=== PATIENT | female | born 1975 | race Two or more races ===

== ENCOUNTER 2024-03-03 19:03 | Emergency (ER) | payer MEDICAID, SELFPAY ==
[2024-03-03 20:10] VITALS: BP 129/86; PULSE 71; RESP 16; TEMP 36.8; O2SAT 97
--- NOTE | 2024-03-03 20:14 | XR_ITS ---
Examination: CT abdomen and pelvis without contrast. Coronal 3-D reconstructions. Sagittal 2-D reconstructions. Date and time of exam:March 03, 20242028 hrs. Comparison August 12, 2022 Indications: Right lower abdominal pain beginning 5 days ago CTDI: vol (mGy): 13 DLP: (mGycm): 778 Technique: Axial images of the abdomen have been obtained, 3 mm slice thickness Intravenous contrast material has not been administered. Low dose protocols were performed. One or more of the following dose reduction techniques were used; automated exposure control, adjustment of the mA and/or KV according to patient size, use of iterative reconstruction technique. Findings: No focal liver or splenic lesions Contracted gallbladder No pancreatic or adrenal mass No renal or ureteral calculi Aorta normal size Appendix is not visualized No pericecal inflammatory change No bowel obstruction or diverticulitis 27 mm hypodense right adnexal mass probably cyst Contracted urinary bladder Moderate disc narrowing L5-S1 Impression: No renal or ureteral calculi, no hydronephrosis No CT findings of appendicitis bowel obstruction or diverticulitis
--- NOTE | 2024-03-03 20:14 | PD.EDRME ---
Rapid Medical Screening Exam RME Arrival date/time: 03/03/24 19:03 48-year-old female past medical history of hysterectomy presents emergency department complaining of diffuse abdominal pain for 1 week. Chief Complaint: Abdominal Pain Time Seen by Provider: 03/03/24 20:11 Vital signs: Vital Signs Temperature 98.2 F 03/03/24 20:10 Pulse Rate 71 03/03/24 20:10 Respiratory Rate 16 03/03/24 20:10 Blood Pressure 129/86 H 03/03/24 20:10 Pulse Oximetry (%) 97 03/03/24 20:10 Oxygen Delivery Method Room Air 03/03/24 20:10 Vital signs reviewed by provider: Yes
[2024-03-03 20:19] VITALS: BMI 34.0
[2024-03-03] MEDS: KETOROLAC INJ 60 MG/2 ML VIAL 30 MG IM (20:27)
[2024-03-03 20:47] LABS: Collection Type, Urine Clean Catch
[2024-03-03 21:13] LABS: Bacteria,Urine Rare; Bilirubin,Urine Negative (Negative); Blood,Urine Negative (Negative); Clarity,Urine Clear (Clear/Hazy); Color,Urine Lt-Yellow (Lt Yel-Yel); Culture Indicated,Urine Not Indicated; Glucose, Urine Negative (Negative); Ketones,Urine Negative (Negative); Leukocyte Esterase,Urine Negative (Negative); Nitrite,Urine Negative (Negative); PH,Urine 6.5 (5.0-7.0); Protein,Urine Trace (Neg - Trace); RBC,Urine 2 /hpf (0-3); Squamous Epithelial Cell,Urine 4 /hpf (0-5); Urobilinogen,Urine Negative mg/dL (0.0-1.0); WBC,Urine 2 /hpf (0-5)
[2024-03-03 21:35] LABS: Basophils # (Auto) 0.1 Thou/mm3 (0.0-0.2); Basophils % (Auto) 1 % (0-2.5); Eosinophils # (Auto) 0.2 Thou/mm3 (0.0-0.5); Eosinophils % (Auto) 2 % (0-10); Hematocrit 39.5 % (36.0-46.0); Hemoglobin 13.4 g/dL (12.0-16.0); Immature Granulocytes % (Auto) 0 % (0-0); Immature Granulocytes Auto 0.04 Thou/mm3 (0.00-0.00); Lymphocytes # (Auto) 4.3 Thou/mm3 (1.0-4.8); Lymphocytes % (Auto) 39 % (10-50); Mean Corpuscular HGB Conc 33.9 g/dl (31.0-37.0); Mean Corpuscular Hemoglobin 30.6 pg (25.0-35.0); Mean Corpuscular Volume 90 fL (80-100); Monocytes # (Auto) 0.6 Thou/mm3 (0.0-0.8); Monocytes % (Auto) 6 % (0-12); Neutrophils # (Auto) 5.6 Thou/mm3 (1.8-7.7); Neutrophils % (Auto) 52 % (37-80); Nucleated Red Blood Cell % 0 /100 WBC (0); Platelet Count 235 Thou/mm3 (140-440); RDW Standard Deviation 41.6 fL (36.4-46.3); Red Blood Count 4.38 Miln/mm3 (4.00-5.20); White Blood Count 10.8 Thou/mm3 (3.6-11.0)
[2024-03-03 21:59] LABS: Alanine Aminotransferase 26 U/L (10-49); Albumin, Serum 4.3 gm/dL (3.5-5.0); Albumin/Globulin Ratio 1.5 (1.2-2.2); Alkaline Phosphatase 96 U/L (46-116); Anion Gap 6 (7-16); Aspartate Amino Transferase 25 U/L (0-34); BUN/Creatinine Ratio 20 Ratio (12-20); Bilirubin,Total 0.2 mg/dL (0.3-1.2); Blood Urea Nitrogen 16 mg/dL (9-23); Calcium 9.3 mg/dL (8.3-10.6); Calcium (Corrected) 9.3 mg/dL (8.5-10.1); Chloride 107 mMol/L (98-107); Creatinine (Component) 0.8 mg/dL (0.6-1.3); Estimated Creatinine Clearance 101.4 mL/min (>60); Globulin 2.8 gm/dL (2.3-3.5); Glucose 77 mg/dL (74-106); Lipase 35 U/L (12-53); Osmolality,Calculated 279 (275-295); Sodium 140 mMol/L (136-145); Total Protein 7.1 gm/dL (5.7-8.2); eGFR > 60 See Note
--- NOTE | 2024-03-03 23:37 | PD.EDABDPN ---
ED Abdominal Pain RME/HPI General Chief Complaint: Abdominal Pain Stated complaint: RIGHT SIDED ABD PAIN Time seen by provider: 03/03/24 20:11 Arrival date/time: 03/03/24 19:03 48-year-old female past medical history of hysterectomy presents emergency department complaining of diffuse abdominal pain for 1 week. Source: patient Mode of arrival: ambulatory Limitations: no limitations RME / HPI RME / HPI narrative: 03/03/24 19:03 48-year-old female past medical history of hysterectomy presents emergency department complaining of diffuse abdominal pain for 1 week. Related Data Previous Rx's ?Medication ?Instructions ?Recorded hydrocodone 5 mg-acetaminophen 325 1 tab PO BID PRN pain #14 tabs 10/30/19 mg tablet ([place]) ibuprofen 800 mg tablet 800 mg PO TID PRN pain #30 tabs 10/30/19 meclizine 25 mg tablet 25 mg PO TID PRN dizziness #20 tabs 11/01/22 ibuprofen 600 mg tablet 600 mg PO Q8H PRN pain #20 tabs 03/03/24 Allergies Allergy/AdvReac Type Severity Reaction Status Date / Time Penicillins Allergy Unknown Verified 11/01/22 11:32 Review of Systems Review of Systems Systems Reviewed: All systems reviewed, normal except as documented Constitutional Constitutional: Reports system reviewed and no additional complaints, except as documented, Denies body ache(s), Denies chills and Denies fever(s) Eyes Eyes: Reports system reviewed and no additional complaints, except as documented and Denies change in vision ENT Ears, Nose, Mouth, and Throat: Reports system reviewed and no additional complaints, except as documented, Denies disequilibrium, Denies dizziness, Denies sore throat and Denies vertigo Cardiovascular Cardiovascular: Reports system reviewed and no additional complaints, except as documented, Denies chest pain and Denies dyspnea Respiratory Respiratory: Reports system reviewed and no additional complaints, except as documented, Denies chest congestion, Denies cough and Denies dyspnea Gastrointestinal Gastrointestinal: Reports system reviewed and no additional complaints, except as documented, Reports abdominal pain, Denies nausea and Denies vomiting Musculoskeletal Musculoskeletal: Reports system reviewed and no additional complaints, except as documented, Denies abnormal gait and Denies arthralgias Integumentary/Breasts Skin/Breast: Reports system reviewed and no additional complaints, except as documented, Denies erythema, Denies rash and Denies wounds Neurologic Neurologic: Reports system reviewed and no additional complaints, except as documented, Denies abnormal gait, Denies disequilibrium, Denies dizziness and Denies vertigo Past Medical History Past Medical History CARDIAC: Negative Cardiac Disorders or Congestive Heart Failure RESPIRATORY: Negative Chronic Obstructive Pulmonary Disease (COPD) or Asthma GENITOURINARY: Negative Renal Disease ENDOCRINE: Negative Diabetes Mellitus Type 1 or Diabetes Mellitus Type 2 HEMATOLOGIC: Negative Sickle Cell Disease Family History FAMILY HISTORY: Positive Family Cardiac Disorders Surgical History SURGICAL: Positive Abdominal Surgery Social History SMOKING STATUS: Never smoker SUBSTANCE USE: does not use ED Exam General Limitations: Present no limitations General appearance: Present alert and in no apparent distress Head Head exam: Present atraumatic Eye Eye exam: Present normal appearance, PERRL and EOMI ENT ENT exam: Present normal exam, normal oropharynx and mucous membranes moist Neck Neck exam: Present normal inspection, full ROM and trachea midline Chest Chest inspection: Present normal inspection and symmetric chest wall rise Respiratory Respiratory exam: Present normal lung sounds bilaterally Cardiovascular Cardiovascular exam: Present regular rate, normal rhythm and normal heart sounds Abdominal Exam Abdominal exam: Present soft and normal bowel sounds Extremities Exam Extremities exam: Present normal inspection and full ROM Back Exam Back exam: Present normal inspection and full ROM Neurological Exam Neurological exam: Present alert, oriented X3 and CN II-XII intact Psychiatric Psychiatric exam: Present normal affect and normal mood Skin Skin exam: Present warm, dry, intact and normal color Course Quality Measures none Orders Category Date Time Status CT abdomen pelvis wo con Stat Exams 03/03/24 20:14 Completed CBC Stat Lab 03/03/24 20:39 Completed CMP [Comprehensive Metabolic Panel] Stat Lab 03/03/24 20:39 Completed Lipase Stat Lab 03/03/24 20:39 Completed Urinalysis, C/S if Indicated Stat Lab 03/03/24 20:29 Completed Ketorolac Inj [Toradol Inj] Med 03/03/24 20:14 Discontinued 30 mg IM X1 ONE Vital Signs Vital signs: Vital Signs Temperature 98.2 F 03/03/24 20:10 Pulse Rate 71 03/03/24 20:10 Respiratory Rate 16 03/03/24 20:10 Blood Pressure 129/86 H 03/03/24 20:10 Pulse Oximetry (%) 97 03/03/24 20:10 Oxygen Delivery Method Room Air 03/03/24 20:10 97% room air within normal limits Abdominal Pain MDM MDM Narrative MDM Narrative:: 48-year-old female past medical history of hysterectomy presents emergency department complaining of diffuse abdominal pain for 1 week. CBC unremarkable for any leukocytosis or anemia. CMP was unremarkable for any elevated LFTs or gross electrolyte abnormalities. Urinalysis was unremarkable. CT scan findings unremarkable other than 27 mm hypodense right adnexal mass probably cyst. Patient's abdomen is soft and nontender. Patient discharged ducted to follow-up with primary care provider and request pelvic ultrasound. Instructed to return to emergency department for any worsening symptoms or as needed. Patient data External records reviewed:: [facility] previous records Clinical information provided by:: patient Social determinants that could affect healthcare access:: none Patient has the following chronic illnesses:: See chart How is presenting disease/condition affected by chronic disease/condition?: uneffected by Evaluation data The following diagnostics were reviewed and interpreted by me:: lab results and radiology exam(s) Lab and/or radiology exams considered but not ordered:: Ordered Interpretation Summary: Interpreted by me Medications / Prescriptions Medications or Prescriptions considered but not ordered:: Ordered Medication administrations:: Medication Administration History Discontinued Medications Ketorolac Tromethamine (Ketorolac Inj 60 Mg/2 Ml Vial) 30 mg IM X1 ONE Stop: 03/03/24 20:15 Last Admin: 03/03/24 20:27 Dose: 30 mg Documented By: Given Consultations Consultation(s) initiated? (list below): No Diagnosis Differential diagnosis abdominal pain: abdominal pain, acute appendicitis, calculus of kidney, constipation, diverticulitis, endometriosis, gastroenteritis, pancreatitis and small bowel obstruction Most likely diagnosis given after review of the tests above:: Adnexal mass Admission Indicated Admission indicated?: not indicated Admission Request Was there a request for admission?: No Disposition Plan Disposition Plan: Discharge Discharge Attestation Discharge Attestation: The patient and all family members were given an opportunity to ask questions and understood the discharge instructions. Discharge instructions specifically effects, indications for sooner follow up or return to the emergency department, and the expected course of current diagnosis. Patient condition: Stable Discharge Plan Plan Patient Disposition: HOME (Self Care) Disposition Comment: Stable Prescriptions/Referrals Prescriptions/Med Rec: New ibuprofen 600 mg tablet 600 mg PO Q8H PRN (Reason: pain) Qty: 20 0RF No Action ibuprofen 800 mg tablet 800 mg PO TID PRN (Reason: pain) Qty: 30 0RF hydrocodone-acetaminophen [[place]] 5-325 mg tablet 1 tab PO BID MDD 4 PRN (Reason: pain) Qty: 14 0RF meclizine 25 mg tablet 25 mg PO TID PRN (Reason: dizziness) Qty: 20 0RF Referrals: Chino Herbert [Primary Care Provider] - In 1 week Problem List Clinical Impression: Adnexal mass Patient/Caregiver Discharge Instructions Discharge Activity: activity as tolerated Education Materials: ED Ovarian Cyst Additional Instructions: Take ibuprofen as needed for pain. Follow-up with primary care provider in 2 to 3 days and request pelvic ultrasound of the right adnexal mass. Return to emergency department for any worsening symptoms or as needed. Print Language: [place] Stand Alone Forms: Liane Award Info., Patient Portal Info Letter PA/SURGICAL PHYSICIAN ASSISTANT Supervising Physician PA/SURGICAL PHYSICIAN ASSISTANT Supervising Physician: Dr. Blackwood
== END 2024-03-03 23:58 | disposition home or self-care (01) ==
PROVIDERS: Emergency Provider Emergency Medicine; PCP Physician Assistant
DX: N83.8 Other noninflammatory disorders of ovary, fallopian tube and broad ligament (principal)
CPT/HCPCS: 36415; 74176; 80053; 81001; 83690; 85025; 96372; 99284; J1885

== ENCOUNTER → 2024-03-17 | Outpatient (CLI) | payer MEDICAID, SELFPAY ==
--- NOTE | 2024-03-17 14:15 | XR_ITS ---
Examination: Pelvic ultrasound, transabdominal, complete Technique: Transabdominal ultrasound of the pelvis performed using grayscale imaging Date and time of exam: March 17, 2024 1510 hours INDICATIONS: 27 mm hypodense right adnexal mass on CT study March 03, 2024, pelvic pain one month FINDINGS: Absent uterus Right ovary 4.1 x 2.3 x 3.0 cm arterial flow, 25 x 21 x 20 mm cyst Left ovary 3.0 x 1.4 x 2.6 cm arterial flow, 10 x 7 x 11 mm cyst IMPRESSION: Small bilateral ovarian cysts as above
--- NOTE | 2024-03-17 14:15 | XR_ITS ---
Examination: Transvaginal ultrasound of the pelvis, complete Technique: Transvaginal sonographic images pelvis performed using blevins scale imaging Exam date and time: March 17, 2024 1527 hours INDICATIONS: Hysterectomy 4 months ago, pelvic pain beginning one month ago FINDINGS: Absent uterus Right ovary 3.5 x 2.4 x 2.3 cm arterial flow 22 x 18 mm cyst Left ovary 26 x 14 x 24 mm, 11 x 11 mm cyst No fluid in the cul-de-sac IMPRESSION: Small bilateral ovarian follicular cysts.
== END | disposition home or self-care (01) ==
LOC: CDIM 14:55
PROVIDERS: PCP Family Medicine; Referring Provider Physician Assistant; Visit Provider Physician Assistant
DX: N83.202 Unspecified ovarian cyst, left side (principal); N83.201 Unspecified ovarian cyst, right side; N83.02 Follicular cyst of left ovary; N83.01 Follicular cyst of right ovary
CPT/HCPCS: 76830; 76856

== ENCOUNTER 2024-09-16 18:46 | Emergency (ER) | payer MEDICAID, SELFPAY ==
[2024-09-16 18:52] VITALS: BP 172/106; PULSE 75; RESP 18; TEMP 37.3; O2SAT 98; BMI 36.2
[2024-09-16] MEDS: FAMOTIDINE 20 MG TABLET PO (19:13)
[2024-09-16] MEDS: MethylPREDNISolone SOD SUCC 62.5 MG/ML 2ML VIAL 125 MG IM (19:14)
--- NOTE | 2024-09-16 19:15 | EDNOTE_ITS ---
<Statement entered by Chayo Deleon MD - 09/17/24 04:49> As co-signing physician, I was present and available for consult prn. I concur with the plan and care as documented by the midlevel provider. ED Skin Abcess FB-RME/HPI General Chief complaint: Animal Bite Stated complaint: Stung by a wasp Time Seen by Provider: 09/16/24 19:02 Arrival date/time: 09/16/24 18:46 48F with no significant PMH presents to ED with some SOB and throat irritation after being stung by a bee/wasp about 30 min ago. Patient's epipen is . Limitations: no limitations Related Data Previous Rx's ?Medication ?Instructions ?Recorded hydrocodone 5 mg-acetaminophen 325 1 tab PO BID PRN pa in #14 tabs 10/30/19 mg tablet ([place]) ibuprofen 800 mg tablet 800 mg PO TID PRN pain #30 t abs 10/30/19 meclizine 25 mg tablet 25 mg PO TID PRN dizziness # 20 tabs 11/01/22 ibuprofen 600 mg tablet 600 mg PO Q8H PRN pain #20 t abs 03/03/24 epinephrine 0.3 mg/0.3 mL 0.3 ml subcut QDAY PRN 09/16 injection, auto-injector (EpiPen) hypersensitivity phyllis ction #2 ea prednisone 20 mg tablet 20 mg PO BID 3 days #6 tabs 09/16/24 Allergies Allergy/AdvReac Type Severity Reaction Status Date / Time Penicillins Allergy Unknown Verified 09/16/24 18:49 bee venom protein (honey bee) Allergy Verified 09/16/24 19:12 venom-wasp Allergy Verified 09/16/24 19:12 Review of Systems Review of Systems Systems Reviewed: All systems reviewed, normal except as documented Constitutional Constitutional: Reports system reviewed and no additional complaints, except as documented, Denies fever(s) and Denies headache(s) ENT Ears, Nose, Mouth, and Throat: Reports as per HPI, Denies disequilibrium, Denies headache(s) and Reports throat swelling Cardiovascular Cardiovascular: Reports system reviewed and no additional complaints, except as documented, Denies chest pain and Reports dyspnea Respiratory Respiratory: Reports system reviewed and no additional complaints, except as documented, Reports as per HPI, Denies cough and Reports dyspnea Gastrointestinal Gastrointestinal: Reports system reviewed and no additional complaints, except as documented, Denies abdominal pain, Denies nausea and Denies vomiting Neurologic Neurologic: Reports system reviewed and no additional complaints, except as documented, Denies confusion, Denies disequilibrium and Denies headache(s) Psychiatric Psychiatric: Denies confusion Allergic/Immunologic Allergic/Immunologic: Reports throat swelling Past Medical History Past Medical History CARDIAC: Negative Cardiac Disorders or Congestive Heart Failure RESPIRATORY: Negative Chronic Obstructive Pulmonary Disease (COPD) or Asthma GENITOURINARY: Negative Renal Disease ENDOCRINE: Negative Diabetes Mellitus Type 1 or Diabetes Mellitus Type 2 HEMATOLOGIC: Negative Sickle Cell Disease Family History FAMILY HISTORY: Positive Family Cardiac Disorders Surgical History SURGICAL: Positive Abdominal Surgery Social History SMOKING STATUS: Never smoker SUBSTANCE USE: does not use ED Exam General Limitations: Present no limitations General appearance: Present alert, in no apparent distress and anxious Head Head exam: Present atraumatic Eye Eye exam: Present normal appearance, PERRL and EOMI ENT ENT exam: Present normal exam, normal oropharynx and mucous membranes moist Neck Neck exam: Present normal inspection, full ROM and trachea midline Chest Chest inspection: Present normal inspection and symmetric chest wall rise Respiratory Respiratory exam: Present normal lung sounds bilaterally Cardiovascular Cardiovascular exam: Present regular rate, normal rhythm and normal heart sounds Abdominal Exam Abdominal exam: Present soft and normal bowel sounds Extremities Exam Extremities exam: Present normal inspection and full ROM Back Exam Back exam: Present normal inspection and full ROM Neurological Exam Neurological exam: Present alert, oriented X3 and CN II-XII intact Psychiatric Psychiatric exam: Present normal affect and normal mood Skin Skin exam: Present warm, dry, intact and normal color Course Quality Measures none Orders Category Date Time Status DiphenhydrAMINE [Benadryl] Med 09/16/24 19:02 Discontinued 25 mg PO X1 ONE Famotidine [Pepcid] Med 09/16/24 19:02 Discontinued 20 mg PO X1 ONE MethylPREDNISolone.* [SoluMEDROL Inj] Med 09/16/24 19:02 Discontinued 125 mg IM X1 ONE Vital Signs Vital signs: Vital Signs Temperature 99.1 F 09/16/24 18:52 Pulse Rate 75 09/16/24 18:52 Respiratory Rate 18 09/16/24 18:52 Blood Pressure 172/106 H 09/16/24 18:52 Pulse Oximetry (%) 98 09/16/24 18:52 Oxygen Delivery Method Room Air 09/16/24 18:52 O2 at 98% on RA and WNLs Skin / Abscess / Foreign Body MDM Narrative MDM Narrative:: 48F with no significant PMH presents to ED with some SOB and throat irritation after being stung by a bee/wasp about 30 min ago. Patient's epipen is . Physical exam reveals normal WOB and clear oropharynx. Patient is afebrile, alert, but anxious. No obvious rash or redness. Meds improved symptoms. Epi-pen refill and debt management counselor given. Patient data External records reviewed:: [facility] previous records Clinical information provided by:: patient Social determinants that could affect healthcare access:: none Patient has the following chronic illnesses:: none How is presenting disease/condition affected by chronic disease/condition?: no chronic disease Evaluation data The following diagnostics were reviewed and interpreted by me:: other (specify) (none) Lab and/or radiology exams considered but not ordered:: not ordered Interpretation Summary: n/a Medications / Prescriptions Medications or Prescriptions considered but not ordered:: ordered Medication administrations:: Medication Administration History Discontinued Medications Diphenhydramine HCl (Diphenhydramine 25 Mg Capsule) 25 mg PO X1 ONE Stop: 09/16/24 19:03 Last Admin: 09/16/24 19:14 Dose: 25 mg Documented By: Famotidine (Famotidine 20 Mg Tablet) 20 mg PO X1 ONE Stop: 09/16/24 19:03 Last Admin: 09/16/24 19:13 Dose: 20 mg Documented By: Methylprednisolone Sodium Succinate (Methylprednisolone Sod Succ 62.5 Mg/Ml 2ml Vial) 125 mg IM X1 ONE Stop: 09/16/24 19:03 Last Admin: 09/16/24 19:14 Dose: 125 mg Documented By: above Consultations Consultation(s) initiated? (list below): No Diagnosis Skin/Abscess Differential Diagnosis: abscess of skin or subcutaneous tissue, viral exanthem, dermatophytosis, urticaria, herpes zoster, allergic reaction to drug, cellulitis, eczema, insect bites, impetigo and contact dermatitis Most likely diagnosis given after review of the tests above:: allergic reaction Admission Indicated Admission indicated?: not indicated Admission Request Was there a request for admission?: No Disposition Plan Disposition Plan: Discharge Discharge Attestation Discharge Attestation: The patient and all family members were given an opportunity to ask questions and understood the discharge instructions. Discharge instructions specifically effects, indications for sooner follow up or return to the emergency department, and the expected course of current diagnosis. Patient condition: Stable Discharge Plan Plan Patient Disposition: HOME (Self Care) Discharge Disposition comment: Stable Prescriptions/Referrals Prescriptions/Med Rec: New prednisone 20 mg tablet 20 mg PO BID 3 Days Qty: 6 0RF epinephrine [EpiPen] 0.3 mg/0.3 mL auto-injector 0.3 ml subcut QDAY PRN (Reason: hypersensitivity reaction) Qty: 2 0RF No Action ibuprofen 800 mg tablet 800 mg PO TID PRN (Reason: pain) Qty: 30 0RF hydrocodone-acetaminophen [[place]] 5-325 mg tablet 1 tab PO BID MDD 4 PRN (Reason: pain) Qty: 14 0RF ibuprofen 600 mg tablet 600 mg PO Q8H PRN (Reason: pain) Qty: 20 0RF meclizine 25 mg tablet 25 mg PO TID PRN (Reason: dizziness) Qty: 20 0RF Referrals: Jamin Nova MD [Primary Care Provider] - In 1 week Problem List Clinical Impression: Allergic reaction Patient/Caregiver Discharge Instructions Education Materials: ED Bite Sting Insect Gen Allergic React Additional Instructions: Please follow-up with PCP within 24-48 hours and return immediately if symptoms worsen. Take OTC antihistamine as needed until symptoms resolve. Finish entire steroid course. Print Language: [place] Stand Alone Forms: Patient Portal Info Letter SUZANNA/ANNIE Supervising Physician SUZANNA/ANNIE Supervising Physician: Dr. Deleon
== END 2024-09-16 20:24 | disposition home or self-care (01) ==
PROVIDERS: Emergency Provider Emergency Medicine; PCP Family Medicine
DX: T63.441A Toxic effect of venom of bees, accidental (unintentional), initial encounter (principal); R06.02 Shortness of breath; R07.0 Pain in throat
CPT/HCPCS: 96372; 99283; J2919; A9270

== ENCOUNTER → 2024-09-22 | Outpatient (CLI) | payer MEDICAID, SELFPAY ==
--- NOTE | 2024-09-22 10:27 | XR_ITS ---
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
== END | disposition home or self-care (01) ==
PROVIDERS: PCP Specialist; Referring Provider Specialist; Visit Provider Specialist
DX: M79.671 Pain in right foot (principal); M79.672 Pain in left foot; S99.922S Unspecified injury of left foot, sequela; S99.921S Unspecified injury of right foot, sequela; W19.XXXS Unspecified fall, sequela
CPT/HCPCS: 73630